=== PATIENT | female | born 1960 | race Caucasian/White ===

== ENCOUNTER 2017-03-12 07:57 | Day surgery (SDC) | payer OTHER ==
[2017-03-12 08:35] VITALS: BMI 24.2
[2017-03-12] MEDS ORDERED: Propofol 10 mg/ml Inj (20 ML) ONE (11:39)
[2017-03-12] MEDS ORDERED: Midazolam 2 MG/2 ML VIAL ONE (11:44)
[2017-03-12] MEDS ORDERED: Lactated Ringer's 1,000 ML IV ONE (11:44)
[2017-03-12 11:50] VITALS: O2SAT 100
[2017-03-12 12:39] VITALS: TEMP 97
[2017-03-12 13:22] VITALS: BP 126/83; PULSE 57; RESP 16
== END 2017-03-12 13:20 | disposition home or self-care (01) ==
LOC: C.ENDO 07:57
PROVIDERS: ATTEND Internal Medicine Gastroenterology
DX: Z12.11 Encounter for screening for malignant neoplasm of colon (principal); K63.5 Polyp of colon; K64.1 Second degree hemorrhoids